=== PATIENT | female | born 1945 | race Caucasian/White ===

== ENCOUNTER 2018-08-14 08:30 | Inpatient (IN) | payer OTHER ==
[~2018-08-14] VITALS: Ht 160 cm; Wt 69.9 kg
[2018-08-14] MEDS ORDERED: BUSPIRONE HCL5 MG PO (14:59)
[2018-08-14] MEDS ORDERED: VENLAFAXINE HCL25 MG PO (15:00)
[2018-08-14] MEDS ORDERED: VERAPAMIL HCL240 M1 PO (15:00)
[2018-08-14] MEDS ORDERED: AVAPRO75 MG PO (15:01)
[2018-08-29] MEDS ORDERED: DOCUSATE SODIU100 MG PO (09:10)
[2018-08-29] MEDS ORDERED: GABAPENTIN800 MG PO (09:10)
[2018-08-29] MEDS ORDERED: CLONAZEPAM1 MG PO (09:11)
[2018-08-29] MEDS ORDERED: AMOX-CLAV 875-1 EACH PO (09:11)
[2018-08-29] MEDS ORDERED: PERCOCET 5-3251 EACH PO (09:11)
== END 2018-08-29 18:37 | DRG 455 ==
LOC: O/R 08-28 05:50 → SURH 08-28 08:30
PROVIDERS: Orthopaedic Surgery Orthopaedic Surgery of the Spine
PROC: 0SG0071 Fusion of Lumbar Vertebral Joint with Autologous Tissue Substitute, Posterior Approach, Posterior Column, Open Approach (ICD-10-PCS; 2018-08-28)
PROC: 0ST20ZZ Resection of Lumbar Vertebral Disc, Open Approach (ICD-10-PCS; 2018-08-28)
PROC: 0SG00AJ Fusion of Lumbar Vertebral Joint with Interbody Fusion Device, Posterior Approach, Anterior Column, Open Approach (ICD-10-PCS; 2018-08-28)
PROC: 07DS3ZZ Extraction of Vertebral Bone Marrow, Percutaneous Approach (ICD-10-PCS; 2018-08-28)
PROC: 0SG00A0 Fusion of Lumbar Vertebral Joint with Interbody Fusion Device, Anterior Approach, Anterior Column, Open Approach (ICD-10-PCS; principal; 2018-08-28 12:00)
DX: M48.061 Spinal stenosis, lumbar region without neurogenic claudication (principal); M51.16 Intervertebral disc disorders with radiculopathy, lumbar region; M43.16 Spondylolisthesis, lumbar region; I10 Essential (primary) hypertension